=== PATIENT | female | born 2000 | race Caucasian/White ===

== ENCOUNTER 2021-03-30 20:31 | Emergency (ER) | payer SELFPAY | END 2021-03-30 21:14 | disposition left against medical advice (07) | LOC: ER1 20:31 | DX: Z53.21 Procedure and treatment not carried out due to patient leaving prior to being seen by health care provider (principal) ==

== ENCOUNTER 2021-08-30 14:00 | Emergency (ER) | payer SELFPAY ==
[2021-08-30 14:44] LABS: HEMOGLOBIN 13.9 gm/dl (12.3-15.3); RED BLOOD COUNT 4.57 M/UL (4.00-5.10); WHITE BLOOD COUNT 4.9 K/UL (4.5-11.0)
[2021-08-30 15:35] LABS: BUN/CREATININE RATIO 10 (0-10)
== END 2021-08-30 15:30 | disposition left against medical advice (07) ==
LOC: ER1 14:00
PROVIDERS: Physician Assistant
DX: R07.9 Chest pain, unspecified (principal); F17.200 Nicotine dependence, unspecified, uncomplicated
CPT/HCPCS: 71045; 80053; 82550; 82553; 83874; 84484; 84702; 85025; 93005; 99283